=== PATIENT | female | born 1950 | race Caucasian/White ===

== ENCOUNTER 2023-10-17 08:34 | Day surgery (SDC) | payer OTHER, BC ==
[2023-10-11 16:44] VITALS: BMI 24.6
[2023-10-17] MEDS ORDERED: NEO/POLYMYX B SULF/DEXAMETH OPHTHALMIC 5ML BOTTLE ONE (09:04)
[2023-10-17] MEDS ORDERED: CARBACHOL 0.01% INTRA-OCULAR 1.5 ML VIAL ONE (09:04)
[2023-10-17] MEDS ORDERED: TETRACAINE 0.5% OPHTH SOLN 2 ML BOTTLE ONE (09:04)
[2023-10-17] MEDS ORDERED: BSS (NA/CA/MG/K) BALANCED SALT SOLUTION OPHTH SOLN 15 ML BOTTLE ONE (09:04)
[2023-10-17] MEDS ORDERED: LIDOCAINE 1% P/F 10 MG/ML VIAL ONE (09:04)
[2023-10-17] MEDS: TROPICAMIDE 1% OPHTH SOLN 15 ML BOTTLE ONE (09:05)
[2023-10-17] MEDS: CIPROFLOXACIN 0.3% EYE DROPS 5 ML BOTTLE ONE (09:05)
[2023-10-17] MEDS: CYCLOPENTOLATE 2% OPHTH SOLN 2 ML BOTTLE ONE (09:05)
[2023-10-17] MEDS: PHENYLEPHRINE 2.5% OPTHALMIC DROP 2ML BOTTLE ONE (09:05)
[2023-10-17 09:06] VITALS: RESP 16
[2023-10-17] MEDS ORDERED: MIDAZOLAM HCL 2 MG/2 ML SINGLE DOSE VIAL ONE ×2 (10:06→10:34)
[2023-10-17] MEDS ORDERED: ONDANSETRON 4 MG/2 ML VIAL ONE ×2 (10:28→12:03)
[2023-10-17 11:48] VITALS: PULSE 56; TEMP 96.9
[2023-10-17 11:50] VITALS: BP 130/60
== END 2023-10-17 11:45 | disposition home or self-care (01) ==
LOC: FASU 08:34
PROVIDERS: ATTEND Ophthalmology
PROC: 08RJ3JZ Replacement of Right Lens with Synthetic Substitute, Percutaneous Approach (ICD-10-PCS; principal; 2023-10-17 10:33)
DX: H26.8 Other specified cataract (principal)
CPT/HCPCS: 66984; V2632